=== PATIENT | female | born 1955 | race Caucasian/White ===

== ENCOUNTER 2019-01-13 15:41 | Emergency (ER) | payer MEDICAID ==
[2019-01-13 16:19] LABS: INR 1.18 (0.5-1.4); PROTHROMBIN TIME (TEST) 12.2 SECONDS (9.5-11.5)
[2019-01-13 16:31] LABS: ALB/GLOB RATIO 0.8 (1.0-1.8); ALBUMIN 3.2 gm/dL (3.7-5.3); ALKALINE PHOSPHATASE 115 U/L (34-104); BILIRUBIN,TOTAL 1.1 mg/dL (0.3-1.0); BUN - UREA NITROGEN 33 mg/dL (7-25); CALCIUM SERUM 9.3 mg/dL (8.6-10.3); CARBON DIOXIDE 30.3 mEq/L (21.0-31.0); CHLORIDE 90 mEq/L (98-107); CREATININE - SERUM 1.1 mg/dL (0.6-1.2); GFR AFRICAN-AMERICAN > 60.0 ml/min (>90); GFR NON AFRICAN-AMERICAN 53.7 ml/min; POTASSIUM SERUM 4.3 mEq/L (3.5-5.1); SGOT 23 U/L (13-39); SGPT/ALT 19 U/L (7-52); SODIUM SERUM 129 mEq/L (136-145)
--- NOTE | 2019-01-13 16:31 | ED Physician Chart ---
ED Chief Complaint/HPI - Patient Information Date Seen:: 01/13/19 Time Seen:: 15:55 Chief Complaint:: low sugar History of Present Illness:: this is a 63 yo female diabetic sent from the [facility] because of an episode of hyperglycemia. she was given 12 units of regular insulin subcutaneous and responded nicely. she has hypertension, chf,high cholesterol and diabetic. the patient is in the [facility] for rehabilitation of the right foot. Allergies:: Allergies Allergy/AdvReac Type Severity Reaction Status Date / Time No Known Allergies Allergy Verified 01/13/19 15:46 Vitals:: Vital Signs - 8 hr 01/13/19 15:46 Temp 97.8 F HR 60 RR 18 BP 150/62 O2 Sat % 100 Historian:: Patient, Medical Records Review:: Nurse's Note Reviewed, EMS run form Reviewed ED Review of Systems - Review of Systems General/Constitutional: No fever, No chills, No weight loss, No weakness, No diaphoresis, No edema, No loss of appetite, Other (obese) Skin: No skin lesions, No rash, No bruising Head: No headache, No light-headedness Eyes: No loss of vision, No pain, No diplopia ENT: No earache, No nasal drainage, No sore throat, No tinnitus Neck: No neck pain, No swelling, No thyromegaly, No stiffness, No mass noted Cardio Vascular: No chest pain, No palpitations, No PND, No orthopnea, No edema Pulmonary: No SOB, No cough, No sputum, No wheezing GI: No nausea, No vomiting, No diarrhea, No pain, No melena, No hematochezia, No constipation, No hematemesis G/U: No dysuria, No frequency, No hematuria Musculoskeletal: No bone or joint pain, No back pain, No muscle pain Endocrine: No polyuria, No polydipsia Psychiatric: No prior psych history, No depression, Anxiety, No suicidal ideation Hematopoietic: No bruising, No lymphadenopathy Allergic/Immuno: No urticaria, No angioedema Neurological: No syncope, No focal symptoms, No weakness, No paresthesia, No headache, No seizure, No dizziness, No confusion, No vertigo ED Past Medical History - Past Medical History Obtainable: Yes Past Medical History: HTN, DM, CHF, Dyslipidemia Family History: None Social History: Smoker, No Alcohol, No Drug Use, Care Facility Surgical History: Cholecystectomy, other (right foot ulcer surgery) Family Medical History - Family Member Father History Unknown: Yes ED Physical Exam - Physical Examination General/Constitutional: Awake, Well-developed, well-nourished, Alert, No distress, GCS 15, Non-toxic appearing, Ambulatory Other Gen/Cons comments:: obese Head: Atraumatic Eyes: Lids, conjuctiva normal, PERRL, EOMI Skin: Nl inspection, No rash, No skin lesions, No ecchymosis, Well hydrated, No lymphadenopathy ENMT: External ears, nose nl, Nasal exam nl, Lips, teeth, gums nl Neck: Nontender, Full ROM w/o pain, No JVD, No nuchal rigidity, No bruit, No mass, No stridor Respiratory: Nl effort/Exclusion, Clear to Auscultation, No Wheeze/Rhonchi/Rales Cardio Vascular: RRR, No murmur, gallop, rubs, NL S1 S2 GI: No tenderness/rebounding/guarding, No organomegaly, No hernia, Normal BS's, Nondistended, No mass/bruits, No McBurney tenderness Other GI comments:: large none tender abdomen : No CVA tenderness Extremities: No tenderness or effusion, Full ROM, normal strength in all extremities, No edema, Normal digits & nails Other Extremities comments:: right foot has a surgical dressing on because she is post op. Neuro/Psych: Alert/oriented, DTR's symmetric, Normal sensory exam, Normal motor strength, Judgement/insight normal, Mood normal, Normal gait, No focal deficits Misc: Normal back, No paraspinal tenderness ED Labs/Radiology/EKG Results - Lab Results Results: Abnormal Lab Results 01/13/19 01/13/19 01/13/19 16:00 16:00 16:00 PT 12.2 H INR 1.18 PTT (Actin FS) 28.6 Sodium 129 L Potassium 4.3 Chloride 90 L Carbon Dioxide 30.3 Anion Gap 13.0 BUN 33 H Creatinine 1.1 Est GFR ( Amer) > 60.0 Est GFR (Non-Af Amer) 53.7 BUN/Creatinine Ratio 30.0 Glucose 481 H* Calcium 9.3 Total Bilirubin 1.1 H AST 23 ALT 19 Alkaline Phosphatase 115 H Troponin I 0.01 B-Natriuretic Peptide Total Protein 7.0 Albumin 3.2 L Globulin 3.8 Albumin/Globulin Ratio 0.8 L TSH 01/13/19 01/13/19 16:00 16:00 PT INR PTT (Actin FS) Sodium Potassium Chloride Carbon Dioxide Anion Gap BUN Creatinine Est GFR ( Amer) Est GFR (Non-Af Amer) BUN/Creatinine Ratio Glucose Calcium Total Bilirubin AST ALT Alkaline Phosphatase Troponin I B-Natriuretic Peptide 232.0 H Total Protein Albumin Globulin Albumin/Globulin Ratio TSH 2.20 - Radiology Results Results: chest x-ray = nad - EKG Interpretations EKG Time:: 15:57 Rate & Rhythm: rate=57, sinus bradycardia Shelby: left ED Assessment - Assessment General Assessment: hyperglycemia anemia ED Septic Shock - . Is Septic Shock (SBP<90, OR Lactate>4 mmol\L) present?: No - <6hrs of presentation: Vital Signs: Vital Signs - 8 hr 01/13/19 15:46 Temp 97.8 F HR 60 RR 18 BP 150/62 O2 Sat % 100 ED Reassessment (Disposition) - Reassessment Reassessment Condition:: Improved - Diagnosis Diagnosis:: diabetes mellitus uncontrolled obesity status post right foot surgery anemia - Aftercare/Follow up Instructions Aftercare/Follow-Up Instructions:: Counseled pt regarding lab results/diagnosis & need follow up, Refer to Discharge Instructions, Counseled pt & family regarding lab results/diagnosis & need follow up - Patient Disposition Discharge/Transfer:: Against Medical Advice
[2019-01-13 16:57] LABS: GLUCOSE 481 mg/dL (70-105)
[2019-01-13] MEDS ORDERED: Sodium Chloride 0.9% 1,000 ML IV ONE (17:05)
[2019-01-13] MEDS ORDERED: Potassium Chloride Elixir 20 mEq /15 mL UDC PO ONE (17:09)
[2019-01-13] MEDS ORDERED: Potassium Chloride Elixir 20 mEq /15 mL UDC ONE (17:12)
[2019-01-13 17:58] LABS: % EOSINOPHILS 2.8 % (0.0-5.0); % NEUTROPHILS 77.4 % (40.0-80.0); EOSINOPHILE ABSOLUTE 0.1 Th/cmm (0.1-0.4); MONOCYTE ABSOLUTE 0.3 Th/cmm (0.3-1.0); NEUTROPHILE ABSOLUTE 4.1 Th/cmm (1.8-8.0)
[2019-01-13] MEDS ORDERED: INSULIN HUMAN REGULAR 100 UNITS/ML UNIT IV ONE (18:00)
[2019-01-13 18:02] LABS: % BASOPHILS 0.8 % (0.0-2.0); % LYMPHOCYTES 12.7 % (20.0-50.0); % MONOCYTES 6.3 % (2.0-10.0); HEMATOCRIT 26.2 % (41.0-60); HEMOGLOBIN 8.3 gm/dL (12-16); LYMPHOCYTE ABSOLUTE 0.7 Th/cmm (1.5-3.0); MEAN CELL VOLUME 74.5 fl (81-100); MEAN CORPUSCULAR HEMOGLOBIN 23.5 pg (27.0-31.0); MEAN CORPUSCULAR HGB CONC 31.5 pg (28.0-36.0); MEAN PLATELET VOLUME 11.9 fl; PLATELET COUNT 103 Th/cmm (150-400); RED BLOOD COUNT 3.52 Mil/cmm (3.80-5.10); WHITE BLOOD COUNT 5.2 Th/cmm (4.8-10.8)
[2019-01-13] MEDS ORDERED: INSULIN HUMAN REGULAR 100 UNITS/ML UNIT ONE (18:07)
--- NOTE | 2019-01-14 09:13 | Diagnostic Imaging Report ---
CHEST X-RAY: AP view INDICATION: Chest congestion COMPARISON: None FINDINGS: There is no focal consolidation or pleural effusions. Cardiomegaly is noted with atherosclerosis. There is mild elevation of the right hemidiaphragm. Degenerative changes of the spine and shoulders are noted. IMPRESSION: No focal consolidation or evidence of peña CHF. Cardiomegaly and atherosclerotic vascular disease.
== END 2019-01-13 18:30 | disposition home or self-care (01) ==
LOC: ER 15:41
DX: E11.65 Type 2 diabetes mellitus with hyperglycemia (principal); D64.9 Anemia, unspecified; E66.9 Obesity, unspecified; Z98.890 Other specified postprocedural states; I11.0 Hypertensive heart disease with heart failure; I50.9 Heart failure, unspecified; E78.5 Hyperlipidemia, unspecified; F17.200 Nicotine dependence, unspecified, uncomplicated
CPT/HCPCS: 99284; 96361; 96374; 93005; 71045; 84484; 83880; 36415; 36416; 84443; 85025; 85610; 85730; 83036; 80053; 87040 ×2; J1815; J7030